=== PATIENT | male | born 1980 | race Caucasian/White ===

== ENCOUNTER 2022-03-18 15:12 | Emergency (ER) | payer OTHER ==
[2022-03-18] MEDS ORDERED: Diazepam 5 MG TAB ONE ×2 (16:11→19:00)
[2022-03-18 17:04] LABS: #Lymphocytes 2.3 thou/uL (1.20-3.40); #Monocytes 0.5 thou/uL (0.11-0.59); #Neutrophils 4.4 thou/uL (1.40-6.50); %Basophils 0.4 % (0.0-1.0); %Eosinophils 0.5 % (0.0-10.0); %Lymphocytes 31.6 % (21.0-51.0); %Monocytes 6.3 % (0.0-10.0); %Neutrophils 61.1 % (42.0-75.0); Hemoglobin 15.6 g/dL (14.0-18.0); Mean Corpuscular HGB CONC 34.4 g/dL (32.0-36.0); Mean Corpuscular Hemoglobin 31.1 pg (27.0-31.0); Mean Corpuscular Volume 90.6 fl (78.0-98.0); Mean Platelet Volume 7.7 fL (7.4-10.4); Platelet Count 256 10x3/uL (130-400); RBC Distribution Width 11.6 % (11.5-14.5); White Blood Cell (WBC) Count 7.2 10x3/uL (4.8-10.8)
[2022-03-18 17:24] LABS: ALT (SGPT) 87 U/L (8-55); AST (SGOT) 52 U/L (5-34); Albumin 3.8 g/dL (3.5-5.0); Alkaline Phosphatase 97 U/L (40-110); Anion Gap 12 mmol/L (10-20); BUN (Urea Nitrogen) 10 mg/dL (8.9-20.6); Bilirubin, Total 1.4 mg/dL (0.2-1.2); Calc. Creatinine Clearance 0 mL/min (70-130); Calcium 8.9 mg/dL (7.8-10.44); Carbon Dioxide 23 mmol/L (22-29); Chloride 97 mmol/L (98-107); Estimated GFR 104; Globulin 2.7 g/dL (2.4-3.5); Glucose 339 mg/dL (70-105); Potassium 3.2 mmol/L (3.5-5.1); Protein, Total 6.5 g/dL (6.0-8.3); Sodium 129 mmol/L (136-145)
[2022-03-18 17:25] LABS: Acetaminophen Less than 10.0 mcg/mL (10.0-30.0); Alcohol Less than 10 mg/dL (Less than 10); Salicylate Less than 8.0 mg/dL (15.0-30.0)
[2022-03-19] MEDS ORDERED: Acetaminophen 500 MG TAB ONE (01:00)
[2022-03-19] MEDS ORDERED: Diazepam 5 MG TAB ONE ×3 (01:07→15:42)
[2022-03-19 09:49] LABS: Bilirubin Negative (Negative); Blood, Urine Negative (Negative); Clarity Clear (Clear); Glucose, Urine (Dipstick) Greater than 1000 mg/dL (Negative); Ketone, Urine 40 mg/dL (Negative); Leukocyte Negative Leu/uL (Negative); Nitrite Negative (Negative); Protein, Urine (Dipstick) Negative (Neg-Trace); Specific Gravity, Urine 1.017 (1.002-1.036); Urobilinogen Normal mg/dL (Less than 2); pH, Urine 5.5 (5.0-9.0)
[2022-03-19 09:58] LABS: Amphetamine Detected (NotDetected); Barbiturates Screen Not Detected (NotDetected); Benzodiazepine Screen Detected (NotDetected); Cocaine Metabolite Screen Not Detected (NotDetected); Methadone Not Detected (NotDetected); Methamphetamine Detected (NotDetected); Opiate Screen Not Detected (NotDetected); Oxycodone Screen Not Detected (NotDetected); Phencyclidine (PCP) Not Detected (NotDetected); THC/Cannabinoid Screen Detected (NotDetected); Tricyclic Screen Not Detected (NotDetected)
[2022-03-19] MEDS ORDERED: chlordiazePOXIDE HCl 25 MG CAP PO SCH (10:45)
== END 2022-03-19 19:46 | disposition home or self-care (01) ==
LOC: ERS 15:12
DX: F10.239 Alcohol dependence with withdrawal, unspecified (principal); F19.10 Other psychoactive substance abuse, uncomplicated; R45.851 Suicidal ideations; I10 Essential (primary) hypertension; K21.9 Gastro-esophageal reflux disease without esophagitis; F17.210 Nicotine dependence, cigarettes, uncomplicated; Z79.899 Other long term (current) drug therapy
CPT/HCPCS: 36415; 80053; 80306; 80307; 81003; 82010; 85025; 99285